=== PATIENT | female | born 1965 | race Caucasian/White ===

== ENCOUNTER → 2017-03-18 | Outpatient (CLI) | payer OTHER ==
[2016-03-05 02:56] VITALS: BP 127/75
--- NOTE | 2017-03-18 09:23 | RAD ---
DATE: 03/18/17 EXAM: DIGITAL SCREEN BILAT W/CAD HISTORY: Routine screening COMPARISON: 03/04/16 This study was interpreted with the benefit of Computerized Aided Detection (CAD). TECHNIQUE: Routine CC and MLO views of both breasts are obtained. FINDINGS: Breast Density: HETERO The breast parenchyma is heterogeneously dense, which could reduce sensitivity of mammography. Breast parenchyma level C.. There is a apparently new nodular density in the right inferior breast, 6:00 position, approximately 8 cm from the nipple. Benign calcifications are seen in the left breast. Skin and nipples are intact IMPRESSION: Apparently new nodule in the right breast at 6:00 zone B position. This may be evaluated x 90 degree mediolateral, CC and MLO spot compression views and ultrasound. BI-RADS CATEGORY: 0 INCOMPLETE: NEED ADDITIONAL IMAGING EVALUATION AND/OR PRIOR MAMMOGRAMS FOR COMPARISON. RECOMMENDED FOLLOW-UP: ADD ADDITIONAL IMAGING PQRS compliance statement: Patient information was entered into a reminder system with a target due date for the next mammogram. Mammography is a sensitive method for finding small breast cancers, but it does not detect them all and is not a substitute for careful clinical examination. A negative mammogram does not negate a clinically suspicious finding and should not result in delay in biopsying a clinically suspicious abnormality. "Our facility is accredited by the [employer] Mammography [employer]."
== END | disposition home or self-care (01) ==
LOC: MAMMO 08:05
PROVIDERS: ATTEND Family Medicine
DX: Z12.31 Encounter for screening mammogram for malignant neoplasm of breast (principal)
CPT/HCPCS: G0202; 77067

== ENCOUNTER → 2017-03-31 | Outpatient (CLI) | payer OTHER ==
[2016-03-05 02:56] VITALS: BP 127/75
--- NOTE | 2017-04-02 10:24 | RAD ---
DATE: 03/31/2017 EXAM: DIGITAL DIAGNOSTIC RT, BREAST RIGHT HISTORY: New nodule identified at approximately the 6:00 position of the right breast on screening COMPARISON: Screening examination 03/18/2017 This study was interpreted with the benefit of Computerized Aided Detection (CAD ). FINDINGS: Breast Density: Unchanged relative to the screening exam. An ML view of the breast as well as a coned compression MLO view and a coned compression cc view were obtained. There is a possible nodule seen on the cone compression MLO view and coned compression cc view as suggested on the screening examination. Targeted ultrasound was performed. There is a hypoechoic 7 mm mass at the 6:00 position of the breast which may correspond to the mammographic finding. The mammographic and ultrasound findings are suggestive of a benign process. Follow- up targeted ultrasound and mammography of the right breast is suggested in 6 months IMPRESSION: Probable benign findings] breast. Follow-up targeted ultrasound and mammography of the right breast suggested in 6 months BI-RADS CATEGORY: 3 PROBABLE BENIGN FINDING(S-SHORT INTERVAL FOLLOW-UP SUGGESTED RECOMMENDED FOLLOW-UP: 6M 6 MONTH FOLLOW-UP PQRS compliance statement: Patient information was entered into a reminder system with a target due date 10/01/2017 for the next mammogram. Mammography is a sensitive method for finding small breast cancers, but it does not detect them all and is not a substitute for careful clinical examination. A negative mammogram does not negate a clinically suspicious finding and should not result in delay in biopsying a clinically suspicious abnormality. "Our facility is accredited by the [employer] Mammography [employer]." YOELD
== END | disposition home or self-care (01) ==
LOC: MAMMO 12:50
PROVIDERS: ATTEND Family Medicine
DX: N63 Unspecified lump in breast (principal)
CPT/HCPCS: 76641; G0206; 77065

== ENCOUNTER → 2017-06-02 | Outpatient (CLI) | payer OTHER ==
[2016-03-05 02:56] VITALS: BP 127/75
--- NOTE | 2017-06-02 14:59 | RAD ---
Right breast ultrasound, 06/02/2017: History: Breast lump The area of reported clinical concern at the 11:00 location was carefully scanned. Heterogeneous fibroglandular shadows are present. No breast mass is seen. Note is made that no breast mass was visible in this region on the 03/18/2017 mammograms. The fibroglandular tissues are heterogeneously dense which limits the sensitivity of mammography. IMPRESSION: The targeted ultrasound exam of the upper outer right breast reveals no abnormality. Clinical surveillance is suggested. 6 month follow-up right breast mammography was suggested on the recent diagnostic mammograms of 03/31/2017, and could be performed sooner if the current area of clinical concern persists. BI-RADS 3-probably benign findings
== END | disposition home or self-care (01) ==
LOC: US 13:47
PROVIDERS: ATTEND Family Medicine
DX: N63 Unspecified lump in breast (principal)
CPT/HCPCS: 76641

== ENCOUNTER → 2018-09-01 | Outpatient (CLI) | payer OTHER ==
[2016-03-05 02:56] VITALS: BP 127/75
--- NOTE | 2018-09-01 11:53 | RAD ---
DATE: 09/01/2018 EXAM: MAMMO NAKUL SCREENING BILATERAL HISTORY: Routine screening COMPARISON: 03/18/2017 This study was interpreted with the benefit of Computerized Aided Detection (CAD). Breast Density: HETERO The breast parenchyma is heterogenously dense, which could reduce sensitivity of mammography. Breast parenchyma level C. FINDINGS: 2-D and 3-D tomosynthesis imaging was performed in CC and MLO projections. No new or enlarging breast densities are seen. Benign type calcifications are present. No suspicious microcalcifications have developed. IMPRESSION: There is no mammographic evidence of malignancy in either breast. BI-RADS CATEGORY: 2 BENIGN FINDING(S) RECOMMENDED FOLLOW-UP: 12M 12 MONTH FOLLOW-UP PQRS compliance statement: Patient information was entered into a reminder system with a target due date for the next mammogram. Mammography is a sensitive method for finding small breast cancers, but it does not detect them all and is not a substitute for careful clinical examination. A negative mammogram does not negate a clinically suspicious finding and should not result in delay in biopsying a clinically suspicious abnormality. "Our facility is accredited by the [employer] Mammography [employer]."
== END | disposition home or self-care (01) ==
LOC: MAMMO 08:03
PROVIDERS: ATTEND Family Medicine
DX: Z12.31 Encounter for screening mammogram for malignant neoplasm of breast (principal)
CPT/HCPCS: 77063; 77067

== ENCOUNTER → 2019-09-02 | Outpatient (CLI) | payer OTHER ==
[2016-03-05 02:56] VITALS: BP 127/75
--- NOTE | 2019-09-02 14:23 | RAD ---
DATE: 09/02/2019. EXAM: MAMMO NAKUL SCREENING BILATERAL. HISTORY: Routine mammographic screening. COMPARISON: 09/01/2018. This study was interpreted with the benefit of Computerized Aided Detection (CAD). FINDINGS: Breast Density: DENSE The breast parenchyma is dense, which could reduce the sensitivity of mammography. Breast parenchyma level density D. Scattered and coarse calcifications are benign. There are no suspicious masses, microcalcifications or architectural distortion. The parenchymal pattern is stable. BI-RADS CATEGORY: 2 BENIGN FINDING(S). RECOMMENDED FOLLOW-UP: 12M 12 MONTH FOLLOW-UP. PQRS compliance statement: Patient information was entered into a reminder system with a target due date 09/02/2020 for the next mammogram. Mammography is a sensitive method for finding small breast cancers, but it does not detect them all and is not a substitute for careful clinical examination. A negative mammogram does not negate a clinically suspicious finding and should not result in delay in biopsying a clinically suspicious abnormality. "Our facility is accredited by the [employer] Mammography [employer]."
== END | disposition home or self-care (01) ==
LOC: MAMMO 07:59
PROVIDERS: ATTEND Family Medicine
DX: Z12.31 Encounter for screening mammogram for malignant neoplasm of breast (principal); N64.89 Other specified disorders of breast
CPT/HCPCS: 77063; 77067

== ENCOUNTER → 2020-09-07 | Outpatient (CLI) | payer OTHER ==
[2016-03-05 02:56] VITALS: BP 127/75
--- NOTE | 2020-09-08 11:39 | RAD ---
DATE: 09/07/2020 8:35 AM EXAM: MAMMO NAKUL SCREENING BILATERAL HISTORY: Screening COMPARISON: 09/02/2019, 09/01/2018 Bilateral CC and MLO views of the breasts were performed. Bilateral breast tomosynthesis was performed in CC and MLO projections. This study was interpreted with the benefit of Computerized Aided Detection (CAD). FINDINGS: Breast Density: HETERO The breast parenchyma Is heterogeneously dense, which could reduce sensitivity of mammography. Breast parenchyma level C No suspicious masses, microcalcifications or architectural distortion is present to suggest malignancy in either breast. The visualized axillae are unremarkable. IMPRESSION: No mammographic evidence of malignancy. BI-RADS CATEGORY: 1 NEGATIVE RECOMMENDED FOLLOW-UP: 12M 12 MONTH FOLLOW-UP Annual screening mammography is recommended, unless clinically indicated sooner based on symptoms or change in physical exam. PQRS compliance statement: Patient information was entered into a reminder system with a target due date for the next mammogram. Mammography is a sensitive method for finding small breast cancers, but it does not detect them all and is not a substitute for careful clinical examination. A negative mammogram does not negate a clinically suspicious finding and should not result in delay in biopsying a clinically suspicious abnormality. "Our facility is accredited by the [employer] Mammography [employer]."
== END ==
LOC: MAMMO 08:25
PROVIDERS: ATTEND Family Medicine
DX: Z12.31 Encounter for screening mammogram for malignant neoplasm of breast (principal)
CPT/HCPCS: 77063; 77067

== ENCOUNTER → 2021-10-01 | Outpatient (CLI) | payer OTHER ==
[2016-03-05 02:56] VITALS: BP 127/75
--- NOTE | 2021-10-01 15:07 | RAD ---
INDICATION: 55 years of age asymptomatic female patient presents for screening mammography. TECHNIQUE: Full field craniocaudal and mediolateral oblique images of both breasts were obtained usi ng digital technique with tomosynthesis and also analyzed with computer-aided detection software. COMPARISON: Prior mammographic imaging dating 09/07/2020, 09/02/2019, 09/01/2018. BREAST COMPOSITION: Category C: The breast tissue is heterogeneously dense, which could obscure detec tion of small masses. FINDINGS: Benign calcifications are present. The parenchymal pattern appears stable. No suspicious masses, microcalcifications or architectural distortion is present to suggest malignanc y in either breast. The visualized axillae are unremarkable. IMPRESSION: No mammographic evidence of malignancy. RECOMMENDATION: Annual screening mammography is recommended, unless clinically indicated sooner based on symptoms or change in physical exam. BIRADS 2: BENIGN This study was interpreted with the benefit of Computerized Aided Detection (CAD). ?Your patient's mammogram demonstrates that she has dense breast tissue (breast density category C or D), which could hide abnormalities, and if she has other risk factors for breast cancer that have be en identified, she might benefit from supplemental screening tests that may be suggested by you as he r ordering physician. Dense breast tissue, in and of itself, is a relatively common condition. Theref ore, this information is not provided to cause undue concern, but rather to raise your awareness and to promote discussion with your patient regarding the presence of other risk factors, in addition to dense breast tissue. Your patient's mammography results will be sent to her. Patient information is entered into the reminder system with a target due date for the next screening mammogram. Mammography is the most sensitive method for finding small breast cancers, but it does not detect the m all and is not a substitute for careful clinical examination. A negative mammogram does not negate a clinically suspicious finding and should not result in delay in biopsying a clinically suspicious a bnormality. "Our facility is accredited by the [employer] Mammography [employer]." Electronically signed by: Brandyn Piper MD (10/01/2021 3:04 PM) [id number]
== END ==
LOC: MAMMO 10:45
PROVIDERS: ATTEND Family Medicine
DX: Z12.31 Encounter for screening mammogram for malignant neoplasm of breast (principal)
CPT/HCPCS: 77063; 77067